=== PATIENT | female | born 1960 | race Caucasian/White ===

== ENCOUNTER 2017-09-13 11:25 | Day surgery (SDC) | payer OTHER ==
[~2017-09-13] VITALS: Ht 162.6 cm; Wt 126.0 kg
[2017-09-13] VITALS (13 sets, daily range): BP systolic 99–194; BP diastolic 43–109; PULSE 55–71; TEMP 97.2–98.8
[2017-09-13] MEDS ORDERED: LEVOXYL0.175 MG PO (11:52)
[2017-09-13] MEDS ORDERED: PRAVACHOL 20MG20 MG PO (11:52)
[2017-09-13] MEDS ORDERED: PRINIVIL40 MG PO (11:52)
[2017-09-13] MEDS ORDERED: ADVIL200 MG PO (11:54)
[2017-09-13] MEDS ORDERED: NORCO 325 MG-51 TAB PO (18:13)
[2017-09-13] MEDS ORDERED: PYRIDIUM 100MG100 MG PO (18:13)
[2017-09-13] MEDS ORDERED: COLACE 100100 MG/CAP PO (18:14)
== END 2017-09-13 19:00 | disposition home or self-care (01) ==
LOC: SDCO 11:25
DX: N13.30 Unspecified hydronephrosis (principal); I10 Essential (primary) hypertension; E03.9 Hypothyroidism, unspecified; Z90.710 Acquired absence of both cervix and uterus; Z87.891 Personal history of nicotine dependence; Z83.3 Family history of diabetes mellitus
CPT/HCPCS: C1769; C2617; J0690; J2270; J2405; J2704; J2765; J3010; J7120; Q9967

== ENCOUNTER 2018-02-01 05:25 | Day surgery (SDC) | payer OTHER ==
[~2018-02-01] VITALS: Ht 162.6 cm; Wt 128.6 kg
[~2018-02-01 05:25] MED LIST: ADVIL200 MG PO; COLACE 100100 MG/CAP PO; LEVOXYL0.175 MG PO; NORCO 325 MG-51 TAB PO; PRAVACHOL 20MG20 MG PO; PRINIVIL40 MG PO; PYRIDIUM 100MG100 MG PO
[2018-02-01] MEDS ORDERED: TIROSINT150 MC1 PO (05:50)
[2018-02-01 05:51] VITALS: BP 135/65; PULSE 65; TEMP 97.6
[2018-02-01 08:08] VITALS: TEMP 97.1
[2018-02-01 08:25] VITALS: BP 113/51; PULSE 50
[2018-02-01 08:40] VITALS: BP 112/57; PULSE 50
[2018-02-01 08:55] VITALS: BP 117/59; PULSE 56
[2018-02-01 09:24] VITALS: BP 113/51; PULSE 51
== END 2018-02-01 09:07 | disposition home or self-care (01) ==
LOC: SDCO 05:25
DX: N13.1 Hydronephrosis with ureteral stricture, not elsewhere classified (principal); I10 Essential (primary) hypertension; E03.9 Hypothyroidism, unspecified; M19.90 Unspecified osteoarthritis, unspecified site; Z90.710 Acquired absence of both cervix and uterus; Z90.722 Acquired absence of ovaries, bilateral; Z90.79 Acquired absence of other genital organ(s); Z88.6 Allergy status to analgesic agent; Z88.8 Allergy status to other drugs, medicaments and biological substances; Z85.41 Personal history of malignant neoplasm of cervix uteri; Z87.891 Personal history of nicotine dependence; Z83.3 Family history of diabetes mellitus
CPT/HCPCS: C1769; C2617; J0690; J1100; J2405; J2704; J3010; J7120

== ENCOUNTER → 2018-11-20 | Outpatient (CLI) | payer OTHER ==
[~2018-11-20] MED LIST changes: +TIROSINT150 MC1 PO
== END ==
LOC: ZCOL.LAB 15:52
DX: I87.2 Venous insufficiency (chronic) (peripheral) (principal); S81.802A Unspecified open wound, left lower leg, initial encounter

== ENCOUNTER → 2019-01-02 | Outpatient (CLI) | payer OTHER | LOC: ZCOL.LAB 09:34 | DX: I83.222 Varicose veins of left lower extremity with both ulcer of calf and inflammation (principal) ==

== ENCOUNTER → 2019-01-26 | Outpatient (CLI) | payer OTHER | LOC: ZCOL.LAB 10:33 | DX: I83.009 Varicose veins of unspecified lower extremity with ulcer of unspecified site (principal) ==

== ENCOUNTER → 2019-03-02 | Outpatient (CLI) | payer OTHER | LOC: ZCOL.LAB 21:44 | DX: I83.029 Varicose veins of left lower extremity with ulcer of unspecified site (principal) ==

== ENCOUNTER → 2019-08-17 | Outpatient (CLI) | payer OTHER | LOC: ZCOL.LAB 15:51 | DX: L97.229 Non-pressure chronic ulcer of left calf with unspecified severity (principal) ==

== ENCOUNTER → 2019-10-02 | Outpatient (CLI) | payer OTHER | LOC: ZCOL.LAB 13:41 | DX: I83.009 Varicose veins of unspecified lower extremity with ulcer of unspecified site (principal) ==

== ENCOUNTER → 2019-10-29 | Outpatient (CLI) | payer OTHER | LOC: ZCOL.LAB 16:30 | DX: I73.9 Peripheral vascular disease, unspecified (principal); I83.009 Varicose veins of unspecified lower extremity with ulcer of unspecified site ==

== ENCOUNTER → 2019-12-18 | Outpatient (CLI) | payer OTHER | LOC: ZCOL.LAB 14:30 | DX: I83.029 Varicose veins of left lower extremity with ulcer of unspecified site (principal) ==

== ENCOUNTER → 2020-03-31 | Outpatient (CLI) | payer OTHER | LOC: ZCOL.LAB 17:38 | DX: L97.929 Non-pressure chronic ulcer of unspecified part of left lower leg with unspecified severity (principal); T14.8XXA Other injury of unspecified body region, initial encounter ==

== ENCOUNTER 2020-05-29 08:15 | Inpatient (IN) | payer OTHER ==
[~2020-05-29] VITALS: Ht 162.6 cm; Wt 126.8 kg
[2020-06-24] VITALS (10 sets, daily range): BP systolic 142–176; BP diastolic 66–87; PULSE 73–87; TEMP 98.3–100.3
--- NOTE | 2020-06-24 07:04 | NUR ---
Patient admitted to room 7 ambulatory is alert and oriented x3. Noted dressing on the left lower extremity. States that she goes to wound care two times per week. States she went on 06/23/2020. Dressing dry on the left lower extemity and not removed.
[2020-06-24] MEDS ORDERED: SYNTHROID0.05 MG/TA PO (07:22)
[2020-06-24] MEDS ORDERED: PRAVACHOL10 MG PO (07:23)
[2020-06-24] MEDS ORDERED: NATURAL IRON65 MG PO (07:24)
[2020-06-24] MEDS ORDERED: DAZIDOX10 MG PO (07:26)
[2020-06-24] MEDS ORDERED: TYLENOL 325MG325 MG PO (07:29)
--- NOTE | 2020-06-24 12:45 | NUR ---
PATIENT ADMITED INTO ROOM 323 POST OP ROBOTIC LEFT NEPHRECTOMY. PATIENT IS ORIENTED BUT DROWSY. PATIENT HAD A LOT OF PAIN IN PACU AND WAS GIVEN PAIN MEDS. PATIENT STILL REPORTS SOME ABD PAIN BUT DUE TO DECREASED RESP AND O2 SAT AT 91% ON 3L, WILL MONITOR. PATIENT UNABLE TO ERAS PROTOCOL MEDS DUE TO ALLERGIES. APPLIED WARM BLANKET TO ABD. US TO DD. IV FLUIDS INFUSING INTO LEFT WRIST. NO C/O N/V AT THIS TIME. HEAD TO TOE ASSESSMENT COMPLETE. PATIENT RESTING IN BED WITH CALL LIGHT IN REACH.
[2020-06-24] MEDS ORDERED: NORCO 325 MG-51 TAB PO (15:54)
--- NOTE | 2020-06-24 19:45 | NUR ---
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 Assessment complete. A&Ox3-drowsy. Blood pressure slightly elevated-rating pain 8/10 on pain scale to abdomen-described as constant throbbing-morphine given per dr order. Also c/o nausea-has not tolerated any clear liquids yet. Zofran given per dr order. 5 lap sites to abdomen-edges well approximated-surgical glue. No drainage noted. Kapadia cath with adequate clear yellow output. IV fluids continue to infuse to left wrist IV due to minimal liquid intake. SCDs bilat. Plan of care discussed for this shift to include pain control/up out of bed/calling for needs. Verbalizes understanding/denies questions or concerns. Call light in reach. Will monitor.
--- NOTE | 2020-06-24 20:40 | NUR ---
Resting eyes closed. Blood pressure re-checked at this time by this nurse-[id number]/78. Temp also [id number]. Encouraged to continue to use IS regularly. Verbalizes understanding. WIll continue to monitor.
[2020-06-25] VITALS (7 sets, daily range): BP systolic 110–180; BP diastolic 59–86; PULSE 55–81; TEMP 97.9–99.1
--- NOTE | 2020-06-25 00:27 | NUR ---
Attempt made to get up out of bed. States she cant due to pain level being to high while trying to sit up. Rating pain 9/10 on pain scale-to left side-described as constant ache/throbbing. Oxycodone given per dr oliver. Discussed importance of getting up out of bed-will wait for thirty minutes and try again.
--- NOTE | 2020-06-25 01:16 | NUR ---
Up to ambulate this time-approx 100 feet. Did get a little lightheaded at end of walk but otherwise tolerated well. Has not taken in much PO-approx 140mls of water. IV fluids still infusing to left wrist IV at 75ml/hr. Denies needs. Call light in reach. Will monitor.
--- NOTE | 2020-06-25 06:10 | NUR ---
Rested well this shift. Pain adequately controlled with PO medications later this shift. DId receive one dose of Dilaudid early in shift. Has not tolerated much PO-diet not advanced. LR continues to infuse at 75ml/hr left wrist IV. VS remain stable. Output has been adequate. Ambulated x1 this shift-tolerated well. Denies current needs. Call light in reach. Will monitor.
--- NOTE | 2020-06-25 07:47 | NUR ---
Patient's hall discontinued and manoj care provided. Instructed patient to call if they felt the need to void. Patient now up to chair.
[2020-06-25 08:28] LABS: CALCIUM 8.8 mg/dL (8.4-10.2); CREATININE, serum 0.84 (0.52-1.25); POTASSIUM 4.5 mmol/L (3.4-5.0)
[2020-06-25 08:29] LABS: BASO % 0.1 % (0.0-2.0); GRAN # 8.2 (1.4-6.5); GRAN % 82.8 % (42.2-75.2); HEMOGLOBIN 10.4 g/dl (12.5-16.0); LYMPH # 0.6 (1.2-3.4); LYMPH % 6.2 % (20.0-51.0); MEAN CELL VOLUME 93 fl (80.0-100.0); MEAN CORPUSCULAR HEMOGLOBIN 30 pg (27.0-31.0); MEAN CORPUSCULAR HGB CONC 32 g/dl (33.0-37.0); MEAN PLATELET VOLUME 9.7 fl (7.4-10.4); MONO # 1.1 (0.1-0.6); MONO % 10.6 % (1.7-9.3); PLATELET COUNT 289 K/mm3 (130-400); RED BLOOD COUNT 3.51 M/mm3 (4.10-5.30); REDCELL DISTRIBUTION WIDTH-CV 14.9 % (11.5-14.5)
[2020-06-25 08:33] LABS: HEMATOCRIT 32.6 % (37.0-47.0)
--- NOTE | 2020-06-25 09:16 | NUR ---
JONO met with the patient to discuss discharge plan. The patient lives in [place] with her , Juan J (ph#[phone]). She reports independence with ADLs and does not have any DME. The patient's PCP is Dr. Santiago Alaniz and she receives her medications at the [facility]. She reprots no difficulties obtaining her meds. The patient's DPOA-HC is in EMR and it designates her . The patient plans to return home with her upon discharge. No additional needs at this time.
--- NOTE | 2020-06-25 09:35 | NUR ---
Initial visit; Patient thanked Member Services Coordinator for looking in on her and offering God's blessings.
--- NOTE | 2020-06-25 14:26 | NUR ---
Patient complained of pain and requested medication. I gave her 5 mg of oxycodone and she reports that she is more comfortable now.
--- NOTE | 2020-06-25 19:20 | NUR ---
Patient resting in bed. Patient had more pain medicine at 1800. No concerns or complaints from patient.
--- NOTE | 2020-06-25 20:00 | NUR ---
Pt. sitting up in bed at this time. Pt. is A&OX3, assessment complete. INT to lt. wrist patent. Pt. denies pain at this time. Call light within reach.
[2020-06-26 04:00] VITALS: BP 119/54; PULSE 60; TEMP 97.7
[2020-06-26 08:45] VITALS: BP 148/75; PULSE 70; TEMP 98
--- NOTE | 2020-06-26 09:10 | NUR ---
PATIENT IS SITTING UP IN THE BEDSIDE CHAIR UPON ENTRY TO THE ROOM, STUDENT NURSE PRESENT IN ROOM. PATIENT IS A&OX4. VSS. ABDOMINAL LAP SITES X5 NURSING TECHN WITH EDGES WELL APPROXIMATED. PATIENT TOLERATING DIET. PATIENT VOIDING WITHOUT DIFFICULTIES. PATIENT PASSING FLATUS. EDEMA TO BLE NOTED. LLE DRESSING IS CD&I. LLE DRESSING PER OUTPATIENT WOUND CARE. PATIENT AMBULATING IN [place] THIS MORNING WITH STAFF. PATIENT DENIES ANY NEEDS AT THIS TIME.
--- NOTE | 2020-06-26 09:21 | NUR ---
Follow up visit with a morning greeting and well wishes.
--- NOTE | 2020-06-26 12:38 | NUR ---
DISCHARGE INSTRUCTIONS REVIEWED WITH PATIENT. QUESTIONS SOUGHT AND ANSWERED. STUDENT NURSE TO DISCONTINUE INT. PATIENT AWAITING RIDE FOR DISCHARGE.
--- NOTE | 2020-06-26 13:22 | NUR ---
PATIENT PERSONAL BELONGINGS GATHERED. PATIENT AMBULATED WITH SURGICAL STAFF TO PERSONAL VEHICLE. PATIENT DISCHARGED.
== END 2020-06-26 13:21 | disposition home or self-care (01) | DRG 661 ==
LOC: INPTSU 06-24 06:54 → SURG 06-24 09:00
PROVIDERS: ADMIT Urology
PROC: 0TT14ZZ Resection of Left Kidney, Percutaneous Endoscopic Approach (ICD-10-PCS; principal; 2020-06-24 09:00)
DX: N13.5 Crossing vessel and stricture of ureter without hydronephrosis (principal); Z85.42 Personal history of malignant neoplasm of other parts of uterus; I10 Essential (primary) hypertension; E03.9 Hypothyroidism, unspecified; Z90.710 Acquired absence of both cervix and uterus; Z88.2 Allergy status to sulfonamides; Z87.891 Personal history of nicotine dependence
CPT/HCPCS: A4314; A9284; J0330; J0690; J1100; J1170; J1650; J1885; J2175; J2250; J2270; J2405; J2550; J2704; J3010; J7120

== ENCOUNTER → 2020-07-07 | Outpatient (CLI) | payer OTHER ==
[~2020-07-07] MED LIST changes: +DAZIDOX10 MG PO; +NATURAL IRON65 MG PO; +PRAVACHOL10 MG PO; +SYNTHROID0.05 MG/TA PO; +TYLENOL 325MG325 MG PO
== END ==
LOC: ZCOL.LAB 17:08
DX: T81.49XA Infection following a procedure, other surgical site, initial encounter (principal)

== ENCOUNTER → 2021-02-23 | Outpatient (CLI) | payer OTHER | LOC: ZCOL.LAB 16:14 | DX: L97.929 Non-pressure chronic ulcer of unspecified part of left lower leg with unspecified severity (principal) ==

== ENCOUNTER → 2021-11-23 | Outpatient (CLI) | payer OTHER | LOC: ZCOL.LAB 16:58 | DX: I87.332 Chronic venous hypertension (idiopathic) with ulcer and inflammation of left lower extremity (principal); D64.9 Anemia, unspecified; E66.9 Obesity, unspecified ==